=== PATIENT | male | born 1970 | race Caucasian/White ===

== ENCOUNTER 2024-11-10 13:11 | Outpatient (AMB) | payer BC, SELFPAY ==
--- NOTE | 2024-11-10 13:20 | MHC.OFFVIS ---
Vital Signs 11/10/24 13:22 Height 5 ft 8 in Weight 332 lb 14.368 oz BMI 50.6 BP 130/74 Blood Pressure Location Lt brachial Position Sitting Pulse 97 Pulse Source Pulse Oximeter Pulse Oximetry (%) 96 Oxygen Delivery Method Room Air Intake Visit Reasons: Obstructive sleep apnea Intake Note: pt is here for a new patient for CARMEN, has [employer] for DME. He states he has never seen a MD for his CARMEN since starting cpap Allergies No Known Allergies Allergy (Verified 11/10/24 14:10) Medication List - Last Reconciled 11/10/24 by Nicole Fermin MD ergocalciferol (vitamin D2) 1,250 mcg PO QWEEK glipizide ER mg PO metformin ER 1,000 mg PO BID multivitamin (Daily Multi-Vitamin tablet) 1 tab PO DAILY omega 4-eem-ery-fish oil 60-90-500 mg (Fish Oil) 1 cap PO DAILY rosuvastatin 40 mg PO DAILY semaglutide (Rybelsus) 7 mg PO DAILY venlafaxine ER 150 mg PO DAILY Do you need a note to return to daycare/school/sports/work: No HPI HPI Obstructive sleep apnea: Details: THIS GENTLEMAN IS 54 YEARS OLD, WITH LONGSTANDING HISTORY OF MORBID OBESITY, DIAGNOSED TO HAVE OBSTRUCTIVE SLEEP APNEA BACK IN 2018, GIVES HISTORY OF USING CPAP VERY REGULARLY, BUYING SUPPLIES ONLINE, BUT HAS NOT SEEN ANY PHYSICIAN FOR MANAGEMENT OF HIS SLEEP APNEA. 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 SLEEPS AFTER HIS WORK , SHIFT ENDING ABOUT 04:00, HE DOES USE THE CPAP WHENEVER HE GETS CHANCE TO SLEEP, WITH AN AVERAGE USAGE OF 6 TO 6-1/2 HOURS DAILY. 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 HE HAS BEEN ABLE TO GET THE LICENSE RENEWED BECAUSE HE HAS BEEN PRESENTING HIS COMPLIANCE TO BE GOOD. HE TOLD ME THAT HE GETS THE COMPLIANCE DOWNLOADED ON PRINTED BY [employer], WHENEVER HE NEEDS. 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 SOMETIMES IT BECOMES STRESSFUL. ALSO BECAUSE OF HIS WORKING AT NIGHT HIS HOURS OF SLEEP ARE SOMEWHAT ERRATIC. LATELY IN SPITE OF USING THE CPAP MORE THAN 6 HOURS PER DAY., HE EXPERIENCES SOME SLEEPINESS DURING THE DAYTIME WHEN HE IS NOT WORKING ACTIVELY, HE HAS SUFFERED FROM SOME DEPRESSION, HAS BEEN TREATED WITH VARIOUS MEDICATIONS, CURRENTLY HE IS ON EFFEXOR 150 MG DAILY . ONE OF THE SIDE EFFECTS OF THIS AGENT IS SLEEPINESS. HE IS BEING FOLLOWED BY HIS PRIMARY CARE PHYSICIAN AND HAS HAD LAP TESTS, WHICH ARE OKAY HE TELLS ME THAT HE IS BEING TREATED FOR DIABETES MELLITUS CURRENTLY ON METFORMIN, GLIPIZIDE ER AND SEMAGLUTIDE 7 MG P.O. DAILY. HE TELLS ME THAT HIS HB1C HAS BEEN OKAY. HE HAS JOINED EXERCISE PROGRAM AND LATELY HAS LOST ABOUT 20 LB OF WEIGHT. [facility] Medical History (Updated 11/10/24 @ 15:24 by Nicole Fermin MD) Depressive disorder Morbid obesity CARMEN on CPAP Social History (Updated 11/10/24 @ 13:29 by QUYNH Baldwin) Patient Tobacco Use Status: Former Tobacco user Review of Systems Const All systems reviewed & are unremarkable except as noted in HPI and below Eyes Reports no additional complaints ENT Reports no additional complaints Card Denies chest pain, Denies irregular heart rhythm and Denies leg edema Resp Reports no additional complaints GI Reports no additional complaints Reports no additional complaints Musc Reports no additional complaints Skin/Breast Reports other (HE DOES HAVE A CLUSTER OF PUSTULAR LESIONS ON MEDIAL ASPECT OF RIGHT THIGH ) Neuro Reports no additional complaints Psych Reports no additional complaints Endo Reports no additional complaints Aller/Immun Reports no additional complaints Physical Exam Vital Signs: Last Vital Signs Pulse 97 11/10/24 13:22 BP 130/74 11/10/24 13:22 Pulse Ox 96 11/10/24 13:22 Oxygen Delivery Method Room Air 11/10/24 13:22 BMI result Body Mass Index 50.6 Const Other: GROSSLY OBESE General: comfortable, no acute distress, alert and awake Orientation/consciousness: patient oriented x3 HEENT Head: Yes normal to inspection General nose exam: No nasal polyps present and No nasal discharge present Face and sinus: Yes sinuses nontender Mouth: oropharynx abnormals (NARROW AND CROWDED OROPHARYNX, MALLAMPATI CLASS 4) Throat: Yes posterior oropharynx normal Eyes General: appearance normal, both eyes and all related structures Neck Neck: Yes normal visual inspection, Yes no lymphadenopathy, Yes trachea midline, Yes no JVD and Yes other (NECK CIRCUMFERENCE 19 IN) Thyroid: Thyroid normal Chest Chest palpation & inspection: normal inspection of the chest, normal palpation of entire chest wall and no tenderness Resp Other: PERCUSSION NOTE IS NOT PERCEPTIBLE BECAUSE OF THICK CHEST WALL BREATH SOUNDS ARE SLIGHTLY DISTANT OVER THE BASILAR AREAS. NO ADVENTITIOUS SOUNDS HEARD . Cardio Palpation: normal PMI Rate: regular rate Rhythm: regular rhythm Heart sounds: no gallops and no murmurs GI Palpation (GI): Soft to palpation, nontender, No hepatosplenomegaly present, no masses and Other GI palpation findings present (ABDOMEN IS OBESE AND PROTUBERANT) Auscultation: normal bowel sounds Back/Spine/Pelvis Thoracic/Lumbar Spine: thoracic and lumbar spine normal to inspection Skin General skin exam: no rashes or lesions noted Nails: other (CLUSTER OF PAPULAR LESIONS, RIGHT THIGH ON THE MEDIAL SIDE) Neuro General: patient oriented x3 and no focal motor deficits Cranial nerves: Yes CN's II-XII intact bilaterally Extrem General: Yes normal to inspection, Yes no clubbing, cyanosis or edema and Yes no calf tenderness Psych Appearance: grossly normal and well kempt Speech and movement: Normal speech and movement present Results Reviewed Results Reviewed: COMPLIANCE REPORT FROM 10/11/2024 TO 11/09/2024 IS REVIEWED. HIS USAGE IS 100% [place] [place] DAYS AVERAGE USAGE PER DAY 6 HOURS 45 MINUTES. PRESSURE SETTING MINIMUM 12 CM MAXIMUM 20 CM WITH EPR OF 3. PRESSURE USED MOSTLY 12-13 CM. NO SIGNIFICANT AIR LEAK NOTED. RESIDUAL AHI ONLY 0.7 Assessment & Plan Assessment & Plan (1) CARMEN on CPAP: Comment: THIS GENTLEMAN IS CONFIRMED CASE OF OBSTRUCTIVE SLEEP APNEA PER SLEEP STUDY IN 2018. HE HAD LAB BASED POLYSOMNOGRAM STUDY, AND RECOMMENDATION WAS TO START HIM ON CPAP. AFTER HE GOT THE CPAP. HE HAS BEEN MANAGING HIMSELF, AND GETTING THE SUPPLIES MOSTLY ONLINE. PER HISTORY AND ALSO EVIDENCED BY HIS COMPLIANCE REPORT, HE IS VERY COMPLIANT AND BENEFITING FROM THE USE OF CPAP. CURRENTLY HAVING PROBLEM WITH THE MASK THAT HE IS USING. IT IS A NASAL MASK, IT IS IRRITATING THE BRIDGE OF HIS NOSE. HE LIKES TO GET A MORE COMFORTABLE MASK AND MAY BE FULLFACE. Code(s): G47.33 - Obstructive sleep apnea (adult) (pediatric) Category: Medical Plan: HIS DME SUPPLIER IS [employer]. WE ARE SENDING A NOTE TO [facility], AND INSTRUCTING THE PATIENT TO SET UP AN APPOINTMENT FOR A MASK FITTING VISIT. HE IS ADVISED TO KEEP ON USING THE CPAP REGULARLY AT LEAST FOR 6 HOURS EVERY DAY OR DURING THE NIGHT. BECAUSE HE COMPLAINED OF RESIDUAL DAYTIME SLEEPINESS, I THINK IT IS DUE TO HIS ERRATIC HOURS OF WORK, AND OF. CPAP USAGE HE SHOULD BE FOLLOWED UP REGULARLY FOR MANAGEMENT OF HIS SLEEP APNEA AND USE OF CPAP. WE MADE APPOINTMENT FOR HIM TO COME BACK IN ABOUT 4 MONTHS, HOWEVER HE MAY CONTINUE TO MANAGE HIS SLEEP APNEA BY HIMSELF. (2) Morbid obesity: Comment: THIS GENTLEMAN REMAINS MORBIDLY OBESE. CURRENT BMI 50.6. HE IS WATCHING HIS DIET HIMSELF AND TRIES TO DO EXERCISE OFF AND ON. Code(s): E66.01 - Morbid (severe) obesity due to excess calories Category: Medical Plan: STRESSED THAT HE NEEDS TO DO PHYSICAL EXERCISE ON A REGULAR BASIS. HE SHOULD SEE A DIETITIAN AND TRY TO MANAGE HIS DIET. (3) Depressive disorder: Comment: COMPLAINS OF GENERALIZED DEPRESSION. THIS MAY BE DUE TO HIS ONGOING MORBID OBESITY AND SLEEP APNEA. OR MAY BE SITUATIONAL HIS ELDERLY MOTHER LIVES WITH HIM AND HE HAS TO TAKE CARE OF. Code(s): F32.A - Depression, unspecified Category: Medical Plan: ADVISE THAT HE SHOULD CONTINUE TO WORK WITH HIS PRIMARY CARE PHYSICIAN . HE MAY NEED ADJUSTMENT IN HIS MEDS . HE MAY NEED REFERRAL FOR MENTAL HEALTH COUNSELING. Plan THIS GENTLEMAN TOLD ME THAT HE HAS BEEN OUT OF WORK FOR A FEW DAYS AND FOR HIM TO GO BACK TO WORK HE NEEDS A NOTE FROM . A PHYSICIAN I SEE HIM FAIRLY WELL UNSTABLE I GAVE HIM A WRITTEN NOTE THAT HE CAN RETURN TO HIS WORK AT THE POST OFFICE OF 11/13/2024 Coding Level of Care Code New Pt Level 3 (55581) Diagnoses CARMEN on CPAP G47.33 Morbid obesity E66.01 Depressive disorder F32.A
[2024-11-10 13:22] VITALS: BP 130/74; PULSE 97; O2SAT 96; BMI 50.6
--- OUTSIDE RECORDS SUMMARY | 2024-11-10 14:16 | XMS_ITS | Clinical Summary ---
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 on direct ? and retroflexion views. Procedure Code(s): ? --- Professional --- ? 18496, Colonoscopy, flexible; with removal of ? tumor(s), polyp(s), or other lesion(s) by snare ? technique Diagnosis Code(s): ? --- Professional --- ? Z12.11, Encounter for screening for malignant neoplasm ? of colon ? K64.9, Unspecified hemorrhoids ? D12.2, Benign neoplasm of ascending colon CPT copyright 2020 [employer]. All rights reserved. The codes documented in this report are preliminary and upon chemical operations specialist review may be revised to meet current compliance requirements. ASHA Aranda DO 06/08/2024 2:56:04 PM This report has been signed electronically.Asha Aranda DO Number of Addenda: 0 Note Initiated On: 06/08/2024 1:07 PM Scope Withdrawal Time: 0 hours 9 minutes 11 seconds Scope In: 2:42:09 PM Scope Out: 2:54:59 PM ? Endoscopy Department at [facility] - [address] [place] [address], ? [place] [address] Procedure Note Asha Aranda DO - 06/08/2024 [facility] GI Patient Name: Bladimir Harrington Procedure Date: 06/08/2024 1:07 PM Date of : 1970 Age: 54 Gender: Male Note Status: Finalized Attending MD: Asha Aranda DO, [id number] Procedure Date No Time: 06/08/2024 Procedure: Colonoscopy Indications: Screening for colorectal malignant neoplasm Providers: Asha Aranda DO Referring MD: Stan Culp MD Medicines: Monitored Anesthesia Care Complications: No immediate complications. Estimated blood loss: Minimal. Estimated Blood Loss: Estimated blood loss was minimal. Procedure: Pre-Anesthesia Assessment: - - Prior to the procedure, a History and Physicalwas performed, and patient medications and allergieswere reviewed. The patient is competent. The risks and benefits of the procedure and the sedation optionsand risks were discussed with the patient. Allquestions were answered and informed consent was obtained. Patient identification and proposed procedure were verified by the physician, the nurse, the anesthesiologist, the caretaker grounds and thetechnician in the pre-procedure area in the endoscopy suite. Mental Status Examination: alert and oriented.Airway Examination: normal oropharyngeal airway and neck mobility. Respiratory Examination: clear to auscultation. CV Examination: normal. Prophylactic Antibiotics: The patient does not requireprophylactic antibiotics. Prior Anticoagulants: The patient has taken no anticoagulant or antiplatelet agents. ASA Grade Assessment: II - A patient with severesystemic disease. After reviewing the risks and benefits,the patient was deemed in satisfactory condition to undergo the procedure. The anesthesia plan was touse monitored anesthesia care (MAC). Immediately priorto administration of medications, the patient was re-assessed for adequacy to receive sedatives. The heart rate, respiratory rate, oxygen saturations, blood pressure, adequacy of pulmonary ventilation,and response to care were monitored throughout the procedure. The physical status of the patient was re-assessed after the procedure. After I obtained informed consent, the scope was passed under direct vision. Throughout theprocedure, the patient's blood pressure, pulse, and oxygen saturations were monitored continuously. The Colonoscope was introduced through the anus and advanced to the cecum, identified by appendiceal orifice and ileocecal valve. The colonoscopy was performed without difficulty. The patient tolerated the procedure well. The quality of the bowel preparation was good. Findings: Hemorrhoids were found on perianal exam. A 6 mm polyp was found in the ascending colon. The polyp was sessile. The polyp was removed with acold snare. Resection and retrieval were complete. Estimated blood loss was minimal. The exam was otherwise without abnormality ondirect and retroflexion views. Procedure Code(s): --- Professional --- 44815, Colonoscopy, flexible; with removal of tumor(s), polyp(s), or other lesion(s) by snare technique Diagnosis Code(s): --- Professional --- Z12.11, Encounter for screening for malignantneoplasm of colon K64.9, Unspecified hemorrhoids D12.2, Benign neoplasm of ascending colon CPT copyright 2020 [employer]. All rights reserved. The codes documented in this report are preliminary and upon chemical operations specialist reviewmay be revised to meet current compliance requirements. ASHA Aranda DO 06/08/2024 2:56:04 PM This report has been signed electronically.Asha Aranda DO Number of Addenda: 0 Note Initiated On: 06/08/2024 1:07 PM Scope Withdrawal Time: 0 hours 9 minutes 11 seconds Scope In: 2:42:09 PM Scope Out: 2:54:59 PM Endoscopy Department at [facility] - [address] [place] [id number] IMPRESSION: - Hemorrhoids found on perianal exam. - One 6 mm polyp in the ascending colon, removedwith a cold snare. Resected and retrieved. - The examination was otherwise normal on directand retroflexion views. Recommendation: - - Discharge patient to home. - High fiber diet. - Continue present medications. - Await pathology results. - Repeat colonoscopy for surveillance based on pathology results. Asha Aranda DO GI~PROCEDURE ORDERABLES Final Re sult * (ABNORMAL) Lipid panel with reflex to direct LDL (05/23/2024 3:03 PM EST) Cholesterol 200 0 - 200 mg/dL LAB CHEMISTRY METHOD 05/23/2024 6:45 PM [facility] Triglycerides 284(H) 0 - 150 mg/dL LAB CHEMISTRY METHOD 05/23/2024 6:45 PM EST [facility] HDL 40 >=40 mg/dL LAB CHEMISTRY METHOD 05/23/2024 6:45 PM [facility] LDL Calculated 103(H) 0 - 100 mg/dL LAB CHEMISTRY METHOD 05/23/2024 6:45 PM [facility] VLDL Cholesterol Manoj 56.8 mg/dL LAB CHEMISTRY METHOD 05/23/2024 6:45 PM EST [facility] Non HDL Chol. (LDL+VLDL) 160(H) <145 mg/dL LAB CHEMISTRY METHOD 05/23/2024 6:45 PM EST [facility] Chol/HDL Ratio 5.0(H) 0.0 - 4.4 LAB CHEMISTRY METHOD 05/23/2024 6:45 PM EST [facility] Blood Venous blood specimen / Unknown Venipuncture / Unknown 05/23/2024 3:03 PM EST 05/23/2024 3:03 PM EST Stan Culp MD LAB BLOOD ORDERABLES Desirae l Result [facility] [address] [place] [address], * Hepatitis C Screening (02/03/2023) Hepatitis C Screening Abstracted Historical Provider HEALTH MAINTENANCE Final Result from Last 3 Months or Most Recently Relevant to Health Maintenance Insurance [facility] Care Teams Roller Bearing Inspector Relationship Specialty Start Date End Date Stan Culp MD [address] [place] [id number] PCP - General Internal Medicine 09/10/16
--- OUTSIDE RECORDS SUMMARY | 2024-11-10 14:16 | XMS_ITS | Encounter Summary ---
[facility] Organization [facility] Address [address] [place] [address] Care Team Providers Care Aircraft Structure Mechanic Name Role Phone Stan Culp MD Primary Care Provider [phone] Reason for Visit * Reason Onset Date Comments lamont 11/09/2024 Encounter Details Date Type Department Care Team (Late st Contact Info) Description 11/09/2024 Telephone Endocrinology - [address] [address] Arlette De La Cruz PA [address] [place] [address] lamont Social History Tobacco Use Types Packs/Day Years [...] on file Sexual Orientation Not on file documented as of this encounter Progress Notes * YADIRA Hudson - 11/10/2024 10:42 AM EDT Lamont will decrease appetite, but it still reported that he eats balanced meals. He should not be skipping meals. If his appetite has decreased so severe that he is not eating at all then we need to discontinue medication * Tuyet Schafer - 11/09/2024 1:11 PM EDT Patient wants to know if its ok to use the mounjaro if he already has no desire to eat. Please advise at [phone] documented in this encounter Plan of Treatment Upcoming Encounters Date Type Department Care Team (Late st Contact Info) Description 01/26/2025 7:30 AM EDT Office Visit Endocrinology - [address] [address] Arlette De La Cruz PA [address] [place] [address] 02/06/2025 9:45 AM EDT Office Visit Internal Medicine - [facility] [address] [place] [address] Stan Culp MD [address] [place] [address] documented as of this encounter Visit Diagnoses Not on filedocumented in this encounter Care Teams Aircraft Structure Mechanic Relationship Specialty Start Date End Date Stan Culp MD [address] [place] [address] PCP - General Internal Medicine 09/10/16 documented as of this encounter
--- OUTSIDE RECORDS SUMMARY | 2024-11-10 14:16 | XMS_ITS | Encounter Summary ---
Author Organization [facility] Address [address] [place] [address] Care Team Providers Care Electromyographic Technician Name Role Phone Stan Culp MD Primary Care Provider [phone] Reason for Visit * Reason Onset Date Comments prior auth 10/28/2024 Encounter Details Date Type Department Care Team (Late st Contact Info) Description 10/28/2024 Telephone Endocr[address] [address] Arlette De La Cruz PA [address] [place] [address] prior auth Social History Tobacco Use Types Packs/Day Years [...] as of this encounter Progress Notes * Gely Geronimo - 10/28/2024 12:48 PM EDT Prior Authorization for Medication-do not complete and send this encounter unless you have the fax from the pharmacy. Is this a Cover My Meds request: Yes -- Ball Code [id number] Name of Medication MOUNJARO Dose of Medication 5MG/0.5 ML AUTO INJECTORS How does patient take this med? Inject 0.5 mL (5 mg total) under the skin every 7 (seven) days., Starting Luisa 10/27/2024, Normal What Pharmacy did the fax come from: [address] [address] Pharmacy fax #: [phone] Help desk phone: [phone] documented in this encounter Plan of Treatment Upcoming Encounters Date Type Department Care Team (Late st Contact Info) Description 01/26/2025 7:30 AM EDT Office Visit Endocrinology - [address] [address] Arlette De La Cruz PA [address] [place] [address] 02/06/2025 9:45 AM EDT Office Visit Internal Medicine - [address] [phone] Stan Culp MD [address] [place] [address] documented as of this encounter Visit Diagnoses Not on filedocumented in this encounter Care Teams Electromyographic Technician Relationship Specialty Start Date End Date Stan Culp MD [address] [place] [id number] PCP - General Internal Medicine 09/10/16 documented as of this encounter
--- OUTSIDE RECORDS SUMMARY | 2024-11-10 14:16 | XMS_ITS | Encounter Summary ---
Author Organization [facility] Address [address] [place] [address] Care Team Providers Care Seals Engraver Name Role Phone Stan Culp MD Primary Care Provider [phone] Reason for Visit * Reason Onset Date Comments Medication Problem 10/28/2024 Encounter Details Date Type Department Care Team ([facility] st Contact Info) Description 10/28/2024 Telephone [facility] - [address] [address] Arlette De La Cruz PA [address] [place] [address] Medication Problem Social History Tobacco Use Types Packs/Day Years [...] encounter Progress Notes * YADIRA Hudson - 11/01/2024 8:55 AM EDT I told this to the patient during her visit. Take 2.5 once a week for the first month, after the first month go up to 5 mg * Reina Araiza - 10/28/2024 10:35 AM EDT Medication Problem: What is the name of the medication patient is having a problem with?: Mounjaro What is the problem?: patient is calling with some questions about Mounjaro. His pharmacy called him to reach out to us. He states there was an rx sent to pharmacy that was canceled for Mounjaro 5 MG, and on MyChart he can see an rx for Mounjaro 2.5 MG as well that says it was not sent to pharmacy?I asked patient if he knew what dose of Mounarjo he was taking or if this was a new medication and he was unsure. PCP had him taking Ozempic before but due to shortages switched to Rybelsus. Rybelsuswas discontinued yesterday to be replaced with Mounjaro? He just wants to make sure he gets the correct dose from pharmacy. Pharmacy [facility]. Who is calling about the problem? : The patient Who prescribed this medication for the patient? Arlette De La Cruz Who is patients PCP?: Stan Culp MD Payor: [facility] / Plan: [facility] / Product Type: *No Product type* / documented in this encounter Plan of Treatment Upcoming Encounters Date Type Department Care Team (Late st Contact Info) Description 01/26/2025 7:30 AM EDT Office Visit Endocrinology - [address] [address] Arlette De La Cruz PA [address] [place] [address] 02/06/2025 9:45 AM EDT Office Visit Internal Medicine - [address] [address] Stan Culp MD [address] [place] [address] documented as of this encounter Visit Diagnoses Not on filedocumented in this encounter Care Teams Seals Engraver Relationship Specialty Start Date End Date Stan Culp MD [address] [place] [address] PCP - General Internal Medicine 09/10/16 documented as of this encounter
--- OUTSIDE RECORDS SUMMARY | 2024-11-10 14:16 | XMS_ITS | Clinical Summary ---
Author Organization [facility] Address [address] [place] [address] Care Team Providers Care Study Abroad Advisor Name Role Phone Unavailable Primary Care Provider Unavailabl e Allergies No known active allergies Medications * This document contains information received from the source organization and may not represent a complete record from that organization. No known medications Social History Tobacco Use Types Packs/Day Years Used Date Smoking Tobacco: Every Day Cigarettes Alcohol Use Standard Drinks/Week Comments Not Asked 0 (1 standard drink = 0.6 oz pur e alcohol) Sex and Gender Information Value Date Recorded Sex Assigned at Not on file Legal Sex Male 1:47 AM EDT Gender Identity Not on file Sexual Orientation Not on file Last Filed Vital Signs Vital Sign Reading Time Taken Comments Blood Pressure 134/94 05/01/2011 12:54 PM EDT Pulse 100 05/01/2011 12:54 PM EDT Temperature - - Respiratory Rate - - Oxygen Saturation - - Inhaled Oxygen Concentration - - Weight 133 kg (293 lb) 05/01/2011 12:54 PM EDT Height 170.2 cm (5' 7 ) 05/01/2011 12:54 PM EDT Body Mass Index 45.89 05/01/2011 12:54 PM EDT Plan of Treatment Health Maintenance Due Date Last Done Comments Hepatitis C Screening 1970 DTaP/Tdap/Td (1 - Tdap) 1990 Hep B (1 of 3 - 19+ 3-dose series) 1991 Pneumococcal 50+ years (1 of 1 - PCV) 2022 Zoster (Shingrix) (1 of 2) 2022 COVID-19 Vaccine ( - 2023-2 5 season) 2024 Influenza (#1) 2024 HPV Vaccine Aged Out No longer eligi ble based on patient's age to complete this topic Hep A Aged Out No longer eligi ble based on patient's age to complete this topic Hib Aged Out No longer eligi ble based on patient's age to complete this topic Meningococcal ACWY Aged Out No longer eligible based on patient's age to complete this topic
--- OUTSIDE RECORDS SUMMARY | 2024-11-10 14:16 | XMS_ITS | Clinical Summary ---
Author Organization [facility] Address [address] [place] [address] Care Team Providers Care Web Database Developer Name Role Phone Stan Culp MD Primary Care Provider [phone] Allergies Active Allergy Reactions Criticality Noted Date Comments Seasonal 08/20/2023 Medications Medication Sig Dispensed Refills Start Date End Date Status Semaglutide 7 MG TABS Take 1 tablet by mouth daily. 0 Active Cholecalciferol 1.25 MG (20406 UT) capsule Take 50,000 Units by mouth daily. 0 Active naproxen (NAPROSYN) 500 MG tablet Take 1 tablet (500 mg total) by mouth 2 (two) times a day with meals. 0 Active metFORMIN (GLUCOPHAGE-XR) ER 24 hr tablet 500 mg Take 1 tablet (500 mg total) by mouth 2 (two) times a day with meals. 0 Active Empagliflozin 25 MG TABS Take 1 tablet by mouth daily. 0 Active venlafaxine (EFFEXOR-XR) 75 MG 24 hr capsule Take 1 capsule (75 mg total) by mouth daily. 0 Active glipiZIDE (GLUCOTROL XL) ER 24 hr tablet 5 mg Take 1 tablet (5 mg total) by mouth 2 (two) times a day. 0 Active atorvastatin (LIPITOR) tablet 80 mg Take 1 tablet (80 mg total) by mouth daily. 0 Active CETIRIZINE HCL PO Take 1 tablet by mouth daily. 0 Active Active Problems No known active problems Social History Tobacco Use Types Packs/Day Years Used Date Smoking Tobacco: Former Cigarettes Smokeless Tobacco: Never Tobacco Cessation:Counseling Given: Not Answered Alcohol Use Standard Drinks/Week Comments Yes 0 (1 standard drink = 0.6 oz pur e alcohol) social Sex and Gender Information Value Date Recorded Sex Assigned at Not on file Gender Identity Not on file Sexual Orientation Not on file Job Start Date Occupation Industry Not on file Not on file Not on file Last Filed Vital Signs Vital Sign Reading Time Taken Comments Blood Pressure 125/78 11/12/2023 1:02 PM EDT Pulse 100 11/12/2023 1:02 PM EDT Temperature 36 ??C (96.8 ??F) 11/12/2023 1:02 PM EDT Respiratory Rate - - Oxygen Saturation 97% 11/12/2023 1:02 PM EDT Inhaled Oxygen Concentration - - Weight 159.2 kg (351 lb) 11/12/2023 1:02 PM EDT Height - - Body Mass Index - - Plan of Treatment Health Maintenance Due Date Last Done Comments Hepatitis B Vaccines (1 of 3 - 3-dose series) 1970 Hepatitis C Screening 1970 COVID-19 Vaccine (#1) 1970 Depression Screening 1984 Preventative Health Evaluation 1990 Colon Cancer Screening (Colonoscopy) 2017 Shingrix-Zoster Vaccine (1 of 2) 2022 Influenza Vaccine (#1) 2024 DTap / Tdap / Td (2 - Td or Tdap) 09/10/2026 017 Pneumococcal Vaccine Aged Out No long er eligible based on patient's age to complete this topic RSV Ped < 20 months Aged Out No longe r eligible based on patient's age to complete this topic Care Teams Web Database Developer Relationship Specialty Start Date End Date Stan Culp MD [address] [place] [address] PCP - General Internal Medicine 07/27/23
== END 2024-11-10 14:08 | disposition home or self-care (01) ==
LOC: HO.HPS 13:11
PROVIDERS: PCP Internal Medicine; Referring Provider Internal Medicine; Visit Provider Internal Medicine
DX: G47.33 Obstructive sleep apnea (adult) (pediatric) (principal); E66.01 Morbid (severe) obesity due to excess calories; F32.A Depression, unspecified
CPT/HCPCS: 99203

== ENCOUNTER 2025-03-15 10:37 | Outpatient (AMB) | payer BC, SELFPAY ==
[2025-03-15 10:39] VITALS: BP 111/60; PULSE 91; O2SAT 96; BMI 51.1
--- NOTE | 2025-03-15 10:39 | A.OFFVIS_ITS ---
Vital Signs 03/15/25 10:39 Height 5 ft 8 in Weight 336 lb BMI 51.1 BP 111/60 Blood Pressure Location Lt brachial Position Sitting Pulse 91 Pulse Source Pulse Oximeter Pulse Oximetry (%) 96 Oxygen Delivery Method Room Air Intake Visit Reasons: Obstructive sleep apnea Intake Note: Patient is here for a follow up on Sleep Apnea, patient stated he does not feel improvement with CPAP machine. Allergies No Known Allergies Allergy (Verified 03/15/25 12:12) Medication List - Last Reconciled 03/15/25 by Nicole Fermin MD ergocalciferol (vitamin D2) 1,250 mcg PO QWEEK gabapentin 100 mg PO TID glipizide ER mg PO metformin ER 1,000 mg PO BID rosuvastatin 40 mg PO DAILY semaglutide (Rybelsus) 7 mg PO DAILY HPI HPI Obstructive sleep apnea: Details: THIS 54 YEARS OLD GENTLEMAN, WITH MORBID OBESITY, WORKS FOR THE [employer]. 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 HE TRIES TO SLEEP DURING THE DAYTIME, GETS ABOUT 5 HOURS OF SLEEP. CLAIMS THAT HIS SLEEP IS THE SAME WHETHER HE USES CPAP OR NOT. LATELY HAS NOT BEEN ABLE TO USE THE CPAP BECAUSE OF IRRITATION OF THE NASAL BRIDGE. HE WONDERS IF HE REALLY DOES HAVE SLEEP APNEA NOT. [facility] Medical History Depressive disorder Morbid obesity CARMEN on CPAP Social History Patient Tobacco Use Status: Former Tobacco user Review of Systems Const All systems reviewed & are unremarkable except as noted in HPI and below Eyes Reports no additional complaints ENT Reports no additional complaints Card Denies chest pain, Denies irregular heart rhythm and Denies leg edema Resp Reports no additional complaints GI Reports no additional complaints Reports no additional complaints Musc Reports no additional complaints Skin/Breast Reports other (HE DOES HAVE A CLUSTER OF PUSTULAR LESIONS ON MEDIAL ASPECT OF RIGHT THIGH ) Neuro Reports no additional complaints Psych Reports no additional complaints Endo Reports no additional complaints Aller/Immun Reports no additional complaints Physical Exam Vital Signs: Last Vital Signs Pulse 91 03/15/25 10:39 BP 111/60 03/15/25 10:39 Pulse Ox 96 03/15/25 10:39 Oxygen Delivery Method Room Air 09/10/25 10:39 BMI result Body Mass Index 51.1 Const Other: GROSSLY OBESE General: comfortable, no acute distress, alert and awake Orientation/consciousness: patient oriented x3 HEENT Head: Yes normal to inspection General nose exam: No nasal polyps present and No nasal discharge present Face and sinus: Yes sinuses nontender Mouth: oropharynx abnormals (NARROW AND CROWDED OROPHARYNX, MALLAMPATI CLASS 4) Throat: Yes posterior oropharynx normal Eyes General: appearance normal, both eyes and all related structures Neck Neck: Yes normal visual inspection, Yes no lymphadenopathy, Yes trachea midline, Yes no JVD and Yes other (NECK CIRCUMFERENCE 19 IN) Thyroid: Thyroid normal Chest Chest palpation & inspection: normal inspection of the chest, normal palpation of entire chest wall and no tenderness Resp Other: PERCUSSION NOTE IS NOT PERCEPTIBLE BECAUSE OF THICK CHEST WALL BREATH SOUNDS ARE SLIGHTLY DISTANT OVER THE BASILAR AREAS. NO ADVENTITIOUS SOUNDS HEARD . Cardio Palpation: normal PMI Rate: regular rate Rhythm: regular rhythm Heart sounds: no gallops and no murmurs GI Palpation (GI): Soft to palpation, nontender, No hepatosplenomegaly present, no masses and Other GI palpation findings present (ABDOMEN IS OBESE AND PRO TUBERANT) Auscultation: normal bowel sounds Back/Spine/Pelvis Thoracic/Lumbar Spine: thoracic and lumbar spine normal to inspection Skin General skin exam: no rashes or lesions noted Nails: other (CLUSTER OF PAPULAR LESIONS, RIGHT THIGH ON THE MEDIAL SIDE) Neuro General: patient oriented x3 and no focal motor deficits Cranial nerves: Yes CN's II-XII intact bilaterally Extrem General: Yes normal to inspection, Yes no clubbing, cyanosis or edema and Yes no calf tenderness Psych Appearance: grossly normal and well kempt Speech and movement: Normal speech and movement present Results Reviewed Results Reviewed: COMPLIANCE REPORT IS REVIEWED. HE HAS USED FOR ONLY 30 NIGHTS OUT OF THE WHOLE MONTH, NOTED ABOVE HE EXPLAINS THAT HE HAD A SUPERFICIAL BUT AT THE NASAL BRIDGE, AND COULD NOT USE THE FULLFACE MASK. NOW IT IS HEALED AND HE IS GOING TO TRY TO START USING THE MASK AGAIN. Assessment & Plan Assessment & Plan (1) Morbid obesity: Comment: THIS GENTLEMAN REMAINS MORBIDLY OBESE. CURRENT BMI 51.1 HE IS WATCHING HIS DIET HIMSELF AND TRIES TO DO EXERCISE OFF AND ON. DOES NOT WANT TO JOIN ANY WEIGHT MANAGEMENT PROGRAM Code(s): E66.01 - Morbid (severe) obesity due to excess calories Category: Medical Plan: DISCUSS WITH HIM ABOUT HIS WEIGHT HE CLAIMS THAT HE KNOWS IT AND HE IS TRYING HIS BEST TO WATCH HIS DIET . . CAN NOT DO MUCH EXERCISE CURRENTLY HE HAS BEEN STARTED ON MOUNJARO THERAPY AND HE IS HOPING TO LOSE WEIGHT. (2) CARMEN on CPAP: Comment: THIS GENTLEMAN IS CONFIRMED CASE OF OBSTRUCTIVE SLEEP APNEA PER SLEEP STUDY IN 2018. HE HAD LAB BASED POLYSOMNOGRAM STUDY, AND RECOMMENDATION WAS TO START HIM ON CPAP. AFTER HE GOT THE CPAP. HE HAS BEEN MANAGING HIMSELF, AND GETTING THE SUPPLIES MOSTLY ONLINE. PER HISTORY AND ALSO EVIDENCED BY HIS COMPLIANCE REPORT, HE IS VERY COMPLIANT AND BENEFITING FROM THE USE OF CPAP. AFTER HIS LAST VISIT WE HAVE HOOKED HIM WITH THE LOCAL DME SUPPLIER AND HE IS GETTING HIS SUPPLIES, HIS MASK HAS BEEN CHANGED TO FULLFACE MASK OF LARGE SIZE., HE SAID INITIALLY IT WAS MORE COMFORTABLE THAN BEFORE BUT NOW IT HAS CAUSED SOME IRRITATION ON THE NASAL BRIDGE. Code(s): G47.33 - Obstructive sleep apnea (adult) (pediatric) Category: Medical Plan: I ADVISED HIM TO START USING THE CPAP AGAIN REGULARLY. HE QUESTIONED , WHETHER HE REALLY DOES HAVE SLEEP APNEA ARE NOT, HE DOES NOT FIND ANY DIFFERENCE IN HIS SLEEP WHETHER HE USES THE CPAP OR DOES NOT. DISCUSSED ABOUT HAVING ANOTHER SLEEP STUDY IN THE SLEEP LAB. HE WANTS TO WAIT A FEW MORE MONTHS AND SEE IF HE CAN LOSE MORE. WEIGHT AND THEN HAVE THE STUDY Coding Level of Care Code Est Pt Level 3 (09702) Diagnoses Morbid obesity E66.01 CARMEN on CPAP G47.33
--- OUTSIDE RECORDS SUMMARY | 2025-03-15 13:11 | XMS_ITS | Encounter Summary ---
Author Organization [facility] Address [address] [place] [address] Care Team Providers Care Beading Sawyer Name Role Phone Stan Culp MD Primary Care Provider [phone] [phone] Encounter Details Date Type Department Care Team Description 06/05/2023 Telephone Adult Medicine [address] [id number] Stan Culp MD [address] [place] [address] Social History Tobacco Use Types Packs/Day Years Used Date Smoking Tobacco: Former Cigarettes 1 25 1 988 - 02/03/2013 Smokeless Tobacco: Never Alcohol Use Standard Drinks/Week Comments No 0 (1 standard drink = 0.6 oz pur e alcohol) Socially Sex Assigned at Date Recorded Male 11/05/2021 11:59 AM EDT Job Start Date Occupation Industry Not on file Not on file Not on file COVID-19 Exposure Response Date Recorded In the last 10 days, have yo u been in contact with someone who was confirmed or suspected to have Coronavirus/COVID-19? Unable to assess 05/14/2023 1:30 PM EST documented as of this encounter Miscellaneous Notes * Telephone Encounter - Roro Serra M.A. - 06/05/2023 10:36 AM EST Left vm put to b side * Telephone Encounter - Roro Serra M.A. - 06/05/2023 10:35 AM EST ----- Message from Stan Culp MD sent at 06/05/2023 6:27 AM EST ----- Please let the patient know that his ultrasound of the abdomen showeed Abnormal liver texture that can be seen in fatty liver. I had already referred him to gastroenterology given his elevated alkaline phosphatase and fatty liver. Please ask him if he has an appointment booked with GI. Also his spleen is enlarged. I have referred him to hematology for this. documented in this encounter Plan of Treatment Not on file documented as of this encounter Visit Diagnoses Not on filedocumented in this encounter Care Teams Beading Sawyer Relationship Specialty Start Date End Date Stan Culp MD [address] [place] [address] PCP - General Internal Medicine 09/10/16 documented as of this encounter
--- OUTSIDE RECORDS SUMMARY | 2025-03-15 13:11 | XMS_ITS | Encounter Summary ---
Author Organization [facility] Address [address] [place] [address] Care Team Providers Care Manager Government Name Role Phone Stan Culp MD Primary Care Provider [phone] Encounter Details Date Type Department Care Team Description 07/21/2023 SCAN [facility] [address] [facility] [address] [place] [phone] Salas Hartley MD 175 [facility] [address] [place] [address] Social History Tobacco Use Types Packs/Day Years Used Date Smoking Tobacco: Former Cigarettes 1 25 1 988 - 02/03/2013 Smokeless Tobacco: Never Alcohol Use Standard Drinks/Week Comments No 0 (1 standard drink = 0.6 oz pur e alcohol) Socially Sex Assigned at Date Recorded Male 11/05/2021 11:59 AM EDT Job Start Date Occupation Industry Not on file Not on file Not on file documented as of this encounter Plan of Treatment Not on file documented as of this encounter Visit Diagnoses Not on filedocumented in this encounter Care Teams Manager Government Relationship Specialty Start Date End Date Stan Culp MD [address] [place], [place] [phone] PCP - General Internal Medicine 09/10/16 documented as of this encounter
--- OUTSIDE RECORDS SUMMARY | 2025-03-15 13:11 | XMS_ITS | Encounter Summary ---
Author Organization [facility] Address [address] [place] [address] Care Team Providers Care Dinkey Mechanic Name Role Phone Stan Culp MD Primary Care Provider [phone] Reason for Visit * Reason Onset Date Comments Provider Call Back 12/15/2016 Encounter Details Date Type Department Care Team Description 12/15/2016 Telephone Adult Medicine [address] [address] Stan Culp MD [address] [place] [address] Provider Call Back Social History Tobacco Use Types Packs/Day Years Used Date Smoking Tobacco: Former Cigarettes 1 25 Q uit: 02/03/2013 Smokeless Tobacco: Never Alcohol Use Standard Drinks/Week Comments Yes 0 (1 standard drink = 0.6 oz pur e alcohol) Socially Sex Assigned at Date Recorded Male 11/05/2021 11:59 AM EDT Job Start Date Occupation Industry Not on file Not on file Not on file documented as of this encounter Miscellaneous Notes * Telephone Encounter - Janice Menendez M.A. - 12/16/2016 8:27 AM EDT Called the pt. Same recording comes on as 12/15/16. If pt calls back please confirm phone number andremessage. Unable to reach pt at number provided * Telephone Encounter - Janice Menendez M.A. - 12/15/2016 3:10 PM EDT Called number listed in the chart. Recording comes on stating that at the subscribers request this phone is not taking incoming calls * Telephone Encounter - Julissa Donis - 12/15/2016 2:22 PM EDT Caller requesting call back from provider: Is the caller the patient? YES Reason for call back: Patient called earlier about referral, he would like to speak to a nurse regarding alternatives. Caller offered to speak with the nurse for assistance: YES Response: Patient offered to speak with nurse for assistance and patient agreed. Message forwarded to nurse. documented in this encounter Plan of Treatment Not on file documented as of this encounter Visit Diagnoses Not on filedocumented in this encounter Care Teams Dinkey Mechanic Relationship Specialty Start Date End Date Stan Culp MD [address] [place] [address] PCP - General Internal Medicine 09/10/16 documented as of this encounter
--- OUTSIDE RECORDS SUMMARY | 2025-03-15 13:11 | XMS_ITS | Encounter Summary ---
Author Organization [facility] Address [address] [place] [address] Care Team Providers Care Podiatric Aide Name Role Phone Stan Culp MD Primary Care Provider [phone] Reason for Visit * Reason Onset Date Comments radiology 12/22/2016 [facility] Encounter Details Date Type Department Care Team Description 12/22/2016 Telephone Adult Medicine [facility] [address] [place] [address] [place], TOE TRIMMER [address] [place] [address] radiology ([facility]) Social History Tobacco Use Types Packs/Day Years [...] encounter Miscellaneous Notes * Telephone Encounter - Debo Cross - 12/22/2016 8:37 AM EDT Please upload to [facility] MRI for [facility]. Thank you, Debo Joinery Machinist Sent images to [facility] on 12/22/16 pm documented in this encounter Plan of Treatment Not on file documented as of this encounter Visit Diagnoses Not on filedocumented in this encounter Care Teams Podiatric Aide Relationship Specialty Start Date End Date Stan Culp MD [address] [place] [address] PCP - General Internal Medicine 09/10/16 documented as of this encounter
--- OUTSIDE RECORDS SUMMARY | 2025-03-15 13:11 | XMS_ITS | Encounter Summary ---
Author Organization [facility] Address [address] [place] [address] Care Team Providers Care Ross Furnace Operator Name Role Phone Stan Culp MD Primary Care Provider [phone] [phone] Encounter Details Date Type Department Care Team Description 08/19/2021 Telephone [facility] [address] [phone] Lg Whalen DPM [address] [address] Social History Tobacco Use Types Packs/Day Years [...] Exposure Response Date Recorded In the last month, have you been in contact with someone who was confirmed or suspected to have Coronavirus / COVID-19? No / Unsure 07/29/2021 2:56 PM EST documented as of this encounter Miscellaneous Notes * Telephone Encounter - Lg Whalen DPM - 09/03/2021 8:04 AM EST Unfortunately his medical conditions specifically diabeties are so poorly controlled it is unlikelythat we will be able to do any elective surgery on him for the next 3 but realistically 6 months orlonger. He requires an A1C below 7.4 which takes many months to work on as he is currently above 9.We will wait to fill out any FMLA paperwork or scripts until he sees me again in 3-6 months with the hopes that he has better controll of his medical conditions. * Telephone Encounter - Adamaris Dobson - 08/29/2021 4:00 PM EST Spoke with Bladimir, just to touch base on the scooter and FMLA paperwork. Aware he will have to wait for the surgery anyways at this time, once the time comes we will go ahead and send out an RX for the scooter and also let him know that it may not be covered under his insurance but we will send thatout and review all the FMLA paperwork that he may have to get again for us to update the information. * Telephone Encounter - Lg Whalen DPM - 08/29/2021 7:59 AM EST I believe were all set on this FMLA paperwork. As far as the scooter goes. Happy to fax a script out to him of have him pick it up. Most insurances do not cover the scooter however. * Telephone Encounter - Akila Pederson - 08/19/2021 9:40 AM EST Bladimir is calling today inquiring about a script for a scooter for after surgery and also has a few questions on the process for FMLA paperwork documented in this encounter Plan of Treatment Not on file documented as of this encounter Visit Diagnoses Not on filedocumented in this encounter Care Teams Ross Furnace Operator Relationship Specialty Start Date End Date Stan Culp MD [address] [place] [address] PCP - General Internal Medicine 09/10/16 documented as of this encounter
--- OUTSIDE RECORDS SUMMARY | 2025-03-15 13:11 | XMS_ITS | Encounter Summary ---
Author Organization [facility] Address [address] [place] [address] Care Team Providers Care Shredder Picker Name Role Phone Stan Culp MD Primary Care Provider [phone] Reason for Visit * Reason Onset Date Comments Letter 09/16/2022 Encounter Details Date Type Department Care Team Description 09/16/2022 Telephone Adult Medicine [address] [phone] Stan Culp MD [address] [place] [address] Letter Social History Tobacco Use Types Packs/Day Years [...] was confirmed or suspected to have Coronavirus/COVID-19? No / Unsure 08/22/2022 3:01 PM EST documented as of this encounter Miscellaneous Notes * Telephone Encounter - Anderson Owusu - 09/16/2022 12:10 PM EDT Letter requested for: Exemption for work Reason for letter: Pt has a skin condition and the polyester pants aggrivate that condition. Specific notations needed in body of letter: That pt can't wear the polyester pants due to his skincondition as it will only aggrivate it. Date needed for completion: DEQUAN When completed: Will shredder picker-call when completed: Pt also has some specific information noted for PCP up front in mailbox. documented in this encounter Plan of Treatment Not on file documented as of this encounter Visit Diagnoses Not on filedocumented in this encounter Care Teams Shredder Picker Relationship Specialty Start Date End Date Stan Culp MD [address] [place] [address] PCP - General Internal Medicine 09/10/16 documented as of this encounter
--- OUTSIDE RECORDS SUMMARY | 2025-03-15 13:11 | XMS_ITS | Encounter Summary ---
Author Organization [facility] Address [address] [place] [address] Care Team Providers Care Early Childhood Lead Teacher Name Role Phone Stan Culp MD Primary Care Provider [phone] Encounter Details Date Type Department Care Team Description 09/21/[address] [facility] [address] [facility] [address] [place] [phone] Salas Hartley MD 175 [facility] [address] [place] [address] Social History Tobacco Use Types Packs/Day Years [...] on filedocumented in this encounter Care Teams Early Childhood Lead Teacher Relationship Specialty Start Date End Date Stan Culp MD [address] [place], [place] [phone] PCP - General Internal Medicine 09/10/16 documented as of this encounter
--- OUTSIDE RECORDS SUMMARY | 2025-03-15 13:11 | XMS_ITS | Encounter Summary ---
Author Organization [facility] Address [address] [place] [address] Care Team Providers Care Community Relations Police Lieutenant Name Role Phone Stan Culp MD Primary Care Provider [phone] Reason for Visit * Reason Onset Date Comments Prior Authorization 08/15/2022 Encounter Details Date Type Department Care Team Description 08/15/2022 Telephone Adult Medicine [address] [address] Stan Culp MD [address] [place] [address] Prior Authorization Social History Tobacco Use Types Packs/Day Years [...] encounter Miscellaneous Notes * Telephone Encounter - Avis Dickey M.A. - 08/19/2022 8:21 AM EST Prior authorization for the sunitha was approved Approved from 07/16/22 until 02/11/23 Approval faxed to [facility] at [phone] * Telephone Encounter - Avis Dickey M.A. - 08/15/2022 2:37 PM EST Cover my meds unable to find coverage for pt. Called pts pharmacy and they have the same insurance information that we have. Called [phone] Called and did the prior authorization over the phone with Navdeep Franklin E66.01 morbid obesity BMI 54.22 * Telephone Encounter - Ghada Conley - 08/15/2022 10:06 AM EST Prior Authorization for Medication-do not complete and send this encounter unless you have the fax from the pharmacy. Is this a Cover My Meds request: Yes -- Ball Code [id number] Name of Medication Semaglutide-Weight Management Solution Auto-injector Dose of Medication 1 MG/0.5ML What is the RX # from the faxed refill? NA How does patient take this med? Inject 1 mg into the skin once a week What Pharmacy did the fax come from: [facility] Pharmacy fax #: [phone] documented in this encounter Plan of Treatment Not on file documented as of this encounter Visit Diagnoses Not on filedocumented in this encounter Care Teams Community Relations Police Lieutenant Relationship Specialty Start Date End Date Stan Culp MD [address] [place] [address] PCP - General Internal Medicine 09/10/16 documented as of this encounter
--- OUTSIDE RECORDS SUMMARY | 2025-03-15 13:11 | XMS_ITS | Encounter Summary ---
Author Organization [facility] Address [address] [place] [address] Care Team Providers Care General Foreman Name Role Phone Stan Culp MD Primary Care Provider [phone] [phone] Reason for Visit * Reason Onset Date Comments TEST RESULTS 10/12/2023 Lmtcb on , ple ase transfer call to ext: [phone] thanks. DAMON BEAUCHAMP Encounter Details Date Type Department Care Team Description 10/12/2023 Telephone Adult Medicine [address] [address] Stan Culp MD [address] [place] [address] TEST RESULTS (Lmtcb on , please transfer call to ext: [phone] thanks. DAMON BEAUCHAMP) Social History Tobacco Use Types Packs/Day Years [...] encounter Miscellaneous Notes * Telephone Encounter - Ruth Lawler - 10/12/2023 11:07 AM EDT Pt called back, please call again. documented in this encounter Plan of Treatment Not on file documented as of this encounter Visit Diagnoses Not on filedocumented in this encounter Care Teams General Foreman Relationship Specialty Start Date End Date Stan Culp MD [address] [place] [address] PCP - General Internal Medicine 09/10/16 documented as of this encounter
--- OUTSIDE RECORDS SUMMARY | 2025-03-15 13:11 | XMS_ITS | Encounter Summary ---
Author Organization [facility] Address [address] [place] [address] Care Team Providers Care Senior Management Consultant Name Role Construction Sales RepresentativeFacundo Yarbrough MD Primary Care Provider Unavailab Stan Mcmillan MD Primary Care Provider [phone] Encounter Details Date Type Department Care Team Description 01/01/2016 Walk In Clinic Visit Medical Records [address] [place] [address] Social History Tobacco Use Types Packs/Day Years Used Date Smoking Tobacco: Former Cigarettes 1 25 Q uit: 02/03/2013 Alcohol Use Standard Drinks/Week Comments Yes 0 [...] on filedocumented in this encounter Care Teams Senior Management Consultant Relationship Specialty Start Date End Date Facundo Yarbrough MD PCP - General 11/05/10 09/09/16 Stan Culp MD [address] [place] [address] PCP - General Internal Medicine 09/10/16 documented as of this encounter
--- OUTSIDE RECORDS SUMMARY | 2025-03-15 13:11 | XMS_ITS | Encounter Summary ---
Author Organization [facility] Address [address] [place] [address] Care Team Providers Care Gi Physician Name Role Phone Stan Culp MD Primary Care Provider [phone] Encounter Details Date Type Department Care Team Description 09/17/2023 SCAN [facility] [address] [facility] [address] [place] [phone] Salas Hartley MD [address] [facility] [address] [place] [address] Social History Tobacco Use Types Packs/Day Years [...] on filedocumented in this encounter Care Teams Gi Physician Relationship Specialty Start Date End Date Stan Culp MD [address] [place], [place] [phone] PCP - General Internal Medicine 09/10/16 documented as of this encounter
--- OUTSIDE RECORDS SUMMARY | 2025-03-15 13:11 | XMS_ITS | Encounter Summary ---
Author Organization [facility] Address [address] [place] [address] Care Team Providers Care Hotel Staff Member Name Role Phone Stan Culp MD Primary Care Provider +1 -[phone] Reason for Visit * Reason Onset Date Comments medication problems 04/17/2023 Encounter Details Date Type Department Care Team Description 04/17/2023 Telephone Medicine/Pediatrics - [address] [address] Stan Culp MD [address] [place] [address] medication problems Social History Tobacco Use Types Packs/Day [...] encounter Miscellaneous Notes * Telephone Encounter - Tammy Doherty - 04/17/2023 2:38 PM EDT Pt advised to call other pharmacy to see if they have in stock. Pt will call back. Hannah BEAUCHAMP * Telephone Encounter - Ruth Lawler - 04/17/2023 2:30 PM EDT Pt returned call * Telephone Encounter - Tammy Doherty - 04/17/2023 2:13 PM EDT Left message for a call back, HANNAH BEAUCHAMP * Telephone Encounter - Stan Culp MD - 04/17/2023 1:44 PM EDT Can we send her to a different pharmacy. This medication is available in other pharmacies. * Telephone Encounter - Angely Stein - 04/17/2023 10:48 AM EDT Who is calling? [facility] Name of the medication Semaglutide, 1 MG/DOSE, 2 MG/1.5ML Solution Pen-injector What is the specific problem or interaction? Product backordered If the patient is having a problem with taking the med - how long has the problem been going on? N/A documented in this encounter Plan of Treatment Not on file documented as of this encounter Visit Diagnoses Not on filedocumented in this encounter Care Teams Hotel Staff Member Relationship Specialty Start Date End Date Stan Culp MD [address] [place] [address] PCP - General Internal Medicine 09/10/16 documented as of this encounter
--- OUTSIDE RECORDS SUMMARY | 2025-03-15 13:11 | XMS_ITS | Encounter Summary ---
Author Organization [facility] Address [address] [place] [address] Care Team Providers Care Lump Maker Name Role Phone Stan Culp MD Primary Care Provider +1 -[phone] Encounter Details Date Type Department Care Team Description 01/30/2023 Collaborative Care Management Adult Medicine - [address] [address] Stan Culp MD [address] [place] [address] Social History Tobacco Use Types Packs/Day Years [...] on filedocumented in this encounter Care Teams Lump Maker Relationship Specialty Start Date End Date Stan Culp MD [address] [place] [id number] PCP - General Internal Medicine 09/10/16 documented as of this encounter
--- OUTSIDE RECORDS SUMMARY | 2025-03-15 13:11 | XMS_ITS | Encounter Summary ---
Author Organization [facility] Address [address] [place] [address] Care Team Providers Care Utilization Management Nurse Name Role Phone Stan Culp MD Primary Care Provider +1 -[phone] Reason for Visit * Reason Onset Date Comments Medication 12/28/2023 Encounter Details Date Type Department Care Team Description 12/28/2023 Refill Gastroenterology [facility] [address] [facility] [address] [place] [address] Jt Aranda DO [address] [facility] [address] [place] [address] Medication Social History Tobacco Use Types Packs/Day Years [...] on filedocumented in this encounter Care Teams Utilization Management Nurse Relationship Specialty Start Date End Date Stan Culp MD [address] [place] [address] PCP - General Internal Medicine 09/10/16 documented as of this encounter
--- OUTSIDE RECORDS SUMMARY | 2025-03-15 13:11 | XMS_ITS | Encounter Summary ---
Author Organization [facility] Address [address] [place] [address] Care Team Providers Care Leach Tank Tender Name Role Phone Stan Culp MD Primary Care Provider +1 -[phone] Reason for Visit * Reason Comments E-prescribe Rx Request Encounter Details Date Type Department Care Team Description 08/12/2022 Refill Adult Medicine [address] [address] Stan Culp MD [address] [place] [address] E-prescribe Rx Request Social History Tobacco Use Types Packs/Day Years [...] encounter Miscellaneous Notes * Telephone Encounter - Tamym Doherty - 08/12/2022 4:45 PM EST LAST OV 05.22.2022 Lab Results Component Value Date HGBA1C 8.2 05/22/2022 MALBUR 17.1 08/27/2021 MALBCR 15.4 08/27/2021 CHOL 187 05/22/2022 LDL 111 05/22/2022 HDL 36 05/22/2022 TRIG 202 05/22/2022 GLU 134 05/22/2022 CREAT 1.04 05/22/2022 * Telephone Encounter - Shea Otto Dubon - 08/12/2022 2:54 PM EST Patient would like script to be: E-PRESCRIBED/FAXED TO PHARMACY WHEN WAS THE PATIENT'S LAST APPOINTMENT IN ADULT MEDICINE? 05/22/22 WHEN WAS THE LAST TIME THE PATIENT SAW THEIR PCP? Same as above Does patient have an upcoming appointment? Yes 08/22/22 (THE MEDICATION REQUESTED IS ON THE MED LIST ABOVE) All of the medications requested were on the CURRENT MEDS list Did you check the Pharmacy information above?: YES Patient wants: 90 -day supply Is this a mail order prescription request ? NO If the refill is from a FAXED refill request what is the RX # listed on the fax? N/A Patients current insurance carrier is: Payor: -[place]/PPO POS / Plan: FEP BASIC $30/$40 [place] / Product Type: PPO [id number] documented in this encounter Plan of Treatment Not on file documented as of this encounter Visit Diagnoses Not on filedocumented in this encounter Care Teams Leach Tank Tender Relationship Specialty Start Date End Date Stan Culp MD [address] [place] [address] PCP - General Internal Medicine 09/10/16 documented as of this encounter
--- OUTSIDE RECORDS SUMMARY | 2025-03-15 13:11 | XMS_ITS | Encounter Summary ---
Author Organization [facility] Address [address] [place] [address] Care Team Providers Care Sand Shoveler Name Role Phone Stan Culp MD Primary Care Provider +1 -[phone] Encounter Details Date Type Department Care Team Description 09/29/2023 SCAN [facility] 175 [facility] [address] [place] [phone] Salas Hartley MD 175 [facility] [address] [place] [address] Social History Tobacco Use Types Packs/Day Years [...] on filedocumented in this encounter Care Teams Sand Shoveler Relationship Specialty Start Date End Date Stan Culp MD [address] [place], [place] [phone] PCP - General Internal Medicine 09/10/16 documented as of this encounter
--- OUTSIDE RECORDS SUMMARY | 2025-03-15 13:11 | XMS_ITS | Encounter Summary ---
Author Organization [facility] Address [address] [place] [address] Care Team Providers Care Milled Rice Broker Name Role Phone Stan Culp MD Primary Care Provider +1 -[phone] Encounter Details Date Type Department Care Team Description 12/29/2023 SCAN [facility] 175 [facility] [address] [place] [phone] Salas Hartley MD 175 [facility] [address] [place] [address] Social History Tobacco Use Types Packs/Day Years [...] on filedocumented in this encounter Care Teams Milled Rice Broker Relationship Specialty Start Date End Date Stan Culp MD [address] [place], [place] [phone] PCP - General Internal Medicine 09/10/16 documented as of this encounter
--- OUTSIDE RECORDS SUMMARY | 2025-03-15 13:11 | XMS_ITS | Encounter Summary ---
Author Organization [facility] Address [address] [place] [address] Care Team Providers Care Management Retail Intern Name Role Phone Stan Culp MD Primary Care Provider +1 -[phone] Encounter Details Date Type Department Care Team Description 07/29/2018 Telephone Pulmonology - [place] 175 [facility] [address] [place] [phone] Roxane To [facility] [address] [place] [address] Social History Tobacco Use Types Packs/Day Years Used Date Smoking Tobacco: Former Cigarettes 1 1 988 - 02/03/2013 Smokeless Tobacco: Never Alcohol Use Standard Drinks/Week Comments Yes 0 (1 standard drink = 0.6 oz pur e alcohol) Socially Sex Assigned at Date Recorded Male 11/05/2021 11:59 AM EDT Job Start Date Occupation Industry Not on file Not on file Not on file documented as of this encounter Miscellaneous Notes * Telephone Encounter - Julia Barillas - 07/29/2018 4:21 PM EST Once the patient picks up his CPAP machine, then [facility] link him in [place]. At this point they do not have serial number. documented in this encounter Plan of Treatment Not on file documented as of this encounter Visit Diagnoses Not on filedocumented in this encounter Care Teams Management Retail Intern Relationship Specialty Start Date End Date Stan Culp MD [address] [place] [address] PCP - General Internal Medicine 09/10/16 documented as of this encounter
--- OUTSIDE RECORDS SUMMARY | 2025-03-15 13:11 | XMS_ITS | Encounter Summary ---
Author Organization [facility] Address [address] [place] [address] Care Team Providers Care Child Support Case Officer Name Role Accounts Receivable CollectorFacundo Yarbrough MD Primary Care Provider Stan Wilson MD Primary Care Provider +1 -[phone] Reason for Visit * Reason Onset Date Comments APPOINTMENT 01/10/2016 Encounter Details Date Type Department Care Team Description 01/10/2016 Telephone Endocrinology - [address] [address] Tj Murry MD APPOINTMENT Social History Tobacco Use Types Packs/Day Years [...] encounter Miscellaneous Notes * Telephone Encounter - Alpa Hopson - 01/11/2016 10:46 AM EDT Appointment booked 01/24 at 2:45p, please notify patient * Telephone Encounter - Gely Geronimo - 01/11/2016 8:30 AM EDT resending * Telephone Encounter - Akila Cifuentes L.P.N. - 01/10/2016 11:11 AM EDT pls send to correct pool * Telephone Encounter - Gely Geronimo - 01/10/2016 9:40 AM EDT Patient is referred to: endocrinology: Tj Murry M.D. Reason for referral: diabetes type 2-- Physician evaluation Priority: 1-2 weeks No availability, please schedule documented in this encounter Plan of Treatment Not on file documented as of this encounter Visit Diagnoses Not on filedocumented in this encounter Care Teams Child Support Case Officer Relationship Specialty Start Date End Date Facundo Yarbrough MD PCP - General 11/05/10 09/09/16 Stan Culp MD [address] [place] [address] PCP - General Internal Medicine 09/10/16 documented as of this encounter
--- OUTSIDE RECORDS SUMMARY | 2025-03-15 13:11 | XMS_ITS | Clinical Summary ---
Author Organization [employer] [facility] Address [address] [place] [address] Care Team Providers Care Rig Builder Name Role Phone Stan Culp MD Primary Care Provider +1 -[phone] Allergies Active Allergy Reactions Criticality Noted Date Comments Seasonal 08/20/2023 Medications Medication Sig Dispensed Refills Start Date End Date Status Semaglutide 7 MG TABS Take 1 tablet by mouth daily. 0 Active Cholecalciferol 1.25 MG (20840 UT) capsule Take 50,000 Units by mouth [...] 100 11/12/2023 1:02 PM EDT Temperature 36 C (96.8 F) 11/12/2023 1:02 PM EDT Respiratory Rate - [...] (1 of 2) 2022 Influenza Vaccine (#1) 2025 DTap / Tdap / Td (2 - Td or Tdap) 09/10/2026 017 Pneumococcal Vaccine Aged Out No long er eligible based on patient's age to complete this topic RSV Ped < 20 months Aged Out No longe r eligible based on patient's age to complete this topic Care Teams Rig Builder Relationship Specialty Start Date End Date Stan Culp MD [address] [place] [address] PCP - General Internal Medicine 07/27/23
--- OUTSIDE RECORDS SUMMARY | 2025-03-15 13:11 | XMS_ITS | Encounter Summary ---
Author Organization [facility] Address [address] [place] [address] Care Team Providers Care Manager Intensive Care Unit Name Role Phone Stan Culp MD Primary Care Provider +1 -[phone] Encounter Details Date Type Department Care Team Description 05/09/2023 Release of Information Medical Records [address] [place] [address] Abstract, Provider Social History Tobacco Use Types Packs/Day Years Used Date Smoking Tobacco: Former Cigarettes 1 30 07 988 - 02/03/2013 Smokeless Tobacco: Never Alcohol [...] suspected to have Coronavirus/COVID-19? No / Unsure 05/11/2023 10:17 AM EST documented as of this encounter Plan of Treatment Not on file documented as of this encounter Visit Diagnoses Not on filedocumented in this encounter Care Teams Manager Intensive Care Unit Relationship Specialty Start Date End Date Stan Culp MD [address] [place] [address] PCP - General Internal Medicine 09/10/16 documented as of this encounter
--- OUTSIDE RECORDS SUMMARY | 2025-03-15 13:11 | XMS_ITS | Encounter Summary ---
Author Organization [facility] Address [address] [place] [address] Care Team Providers Care Shanker Out Name Role Phone Stan Culp MD Primary Care Provider +1 -[phone] Reason for Visit * Reason Onset Date Comments Surgery (Schedule) 11/04/2023 Encounter Details Date Type Department Care Team Description 11/04/2023 Telephone [facility] [address] [phone] Salas Hartley MD [address] [address] Surgery (Schedule) Social History Tobacco Use Types Packs/Day Years [...] encounter Miscellaneous Notes * Telephone Encounter - Arabella Ayala - 11/04/2023 4:06 PM EDT Spoke with patient to schedule surgery. 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 I called Heel Reducer Therese Rae at [phone] and left a voicemail as to where I need to send clincials and request for auth for surgery documented in this encounter Plan of Treatment Not on file documented as of this encounter Visit Diagnoses Not on filedocumented in this encounter Care Teams Shanker Out Relationship Specialty Start Date End Date Stan Culp MD [address] [place] [address] PCP - General Internal Medicine 09/10/16 documented as of this encounter
--- OUTSIDE RECORDS SUMMARY | 2025-03-15 13:11 | XMS_ITS | Encounter Summary ---
Author Organization [facility] Address [address] [place] [address] Care Team Providers Care Parts Cataloger Name Role Phone Stan Culp MD Primary Care Provider +1 -[phone] Reason for Referral * Non BAKARI (Routine) - Authorized/Booked Specialty Diagnoses / Procedures Referred By Jerel zaragoza Referred To Contact Podiatry Procedures REFERRAL TO PODIATRY (IN NETWORK) Stan Culp MD [address] [place] [address] Adair Pozo, DPTaty [address] [place] [address] Referral ID Status Reason Start Date Expiration Date V isits Requested Visits Authorized [id number] Authorized/B ooked 12/01/2018 12/01/2019 1 1 Reason for Visit * Reason Onset Date Comments Youth Services Librarian Feedback 12/01/2018 Adair Pozo Encounter Details Date Type Department Care Team Description 12/01/2018 Telephone Adult Medicine [address] [address] Stan Culp MD [address] [place] [address] Youth Services Librarian Feedback (Adair Pozo) Social History Tobacco Use Types Packs/Day Years [...] encounter Miscellaneous Notes * Telephone Encounter - Stan Culp MD - 12/01/2018 2:55 PM EDT Referral to podiatry signed * Telephone Encounter - Debo Cross - 12/01/2018 1:45 PM EDT Please review this patients new referral request. The referral has been pended. Please complete thefollowing: If approved> sign order If denied>please give instructions and route to your practice nursing pool. Practice nurse should inform referrals and the patient if denied. * Telephone Encounter - Tammy Olivas - 12/01/2018 1:12 PM EDT Request for a referral to a [facility] Specialist for a patient with a [facility] PCP. If patient does NOT have a [facility] PCP they must obtain a referral from their PCP before being seen-do not submit request to Referrals department-contact patient. Richard MAY and Iraj MAY should not see patients with community PCP's as they are not billed as specialists. Specialty patient is being referred to: podiatry Name of Specialist patient is seeing: Dr. Adair Pozo Reason/diagnosis for visit: Pain in left foot and toes, diabetic patient. Date of appoinment: na If retro, date referral needs to start: aaron Culp Payor: [place]/PPO POS / Plan: FEP BASIC $30/$40 [place] / Product Type: PPO [id number] documented in this encounter Plan of Treatment Not on file documented as of this encounter Visit Diagnoses Not on filedocumented in this encounter Care Teams Parts Cataloger Relationship Specialty Start Date End Date Stan Culp MD [address] [place] [address] PCP - General Internal Medicine 09/10/16 documented as of this encounter
--- OUTSIDE RECORDS SUMMARY | 2025-03-15 13:11 | XMS_ITS | Encounter Summary ---
Author Organization [facility] Address [address] [place] [address] Care Team Providers Care Software Tester Name Role Phone Stan Culp MD Primary Care Provider +1 -[phone] Reason for Visit * Reason Onset Date Comments TEST RESULTS 01/13/2024 Encounter Details Date Type Department Care Team Description 01/13/2024 Telephone Adult Medicine [address] [address] Stan Culp MD [address] [place] [address] TEST RESULTS Social History Tobacco Use Types Packs/Day Years [...] encounter Miscellaneous Notes * Telephone Encounter - Sheri Gray MA. - 01/14/2024 1:09 PM EDT Spoke to pt and informed. He had no questions at this time. * Telephone Encounter - Jennifer Rico - 01/13/2024 1:56 PM EDT Pt calling back requesting a call back when you can. Thank you * Telephone Encounter - Sheri Gray MA. - 01/13/2024 1:43 PM EDT Attempted to contact pt / no answer LM to cb. Re: test results. Please put thru [id number] * Telephone Encounter - Sheri Gray MA. - 01/13/2024 1:43 PM EDT ----- Message from Stan Culp MD sent at 01/13/2024 12:50 PM EDT ----- Patient did not read his Octonius message. Could you please give him the following message: Your ultrasound of your abdomen showed that you do have fatty liver. You will need to focus on weight loss to improve this. You are being monitored by the ribbon hand for this as well. Thank you. documented in this encounter Plan of Treatment Not on file documented as of this encounter Visit Diagnoses Not on filedocumented in this encounter Care Teams Software Tester Relationship Specialty Start Date End Date Stan Culp MD [address] [place] [address] PCP - General Internal Medicine 09/10/16 documented as of this encounter
--- OUTSIDE RECORDS SUMMARY | 2025-03-15 13:11 | XMS_ITS | Clinical Summary ---
Author Organization [facility] Address [address] [place] [address] Care Team Providers Care Ticket Agent Name Role Phone Unavailable Primary Care Provider [...] (Shingrix) (1 of 2) 2022 COVID-19 Vaccine (1 - 2023-2 5 season) 2025 Influenza (#1) 2025 HPV Vaccine (No Doses Required) Completed Hep A Aged Out No longer eligi ble based on patient's age to complete this topic Hib Aged Out No longer eligi ble based on patient's age to complete this topic Meningococcal ACWY Aged Out No longer eligible based on patient's age to complete this topic
--- OUTSIDE RECORDS SUMMARY | 2025-03-15 13:11 | XMS_ITS | Encounter Summary ---
Author Organization [facility] Address [address] [place] [address] Care Team Providers Care Truck Railroad And Bus Motor Mechanic Name Role Phone Stan Culp MD Primary Care Provider +1 -[phone] Reason for Visit * Reason Comments E-prescribe Rx Request Encounter Details Date Type Department Care Team Description 08/22/2019 Refill Adult Medicine [address] [address] Sosa East NP [address] [place] [address] E-prescribe Rx Request Social History Tobacco Use [...] encounter Miscellaneous Notes * Telephone Encounter - Gregoria Rodriguez M.A. - 08/22/2019 11:57 AM EST Last office visit 02/04/19 Lab Results Component Value Date HGBA1C 7.8 02/04/2019 MALBUR 8.9 10/04/2018 MALBCR < 6.9 10/04/2018 CHOL 161 10/04/2018 LDL 76 10/04/2018 HDL 30 10/04/2018 TRIG 278 10/04/2018 GLU 69 10/04/2018 CREAT 0.92 10/04/2018 * Telephone Encounter - Meenakshi Ca - 08/22/2019 11:51 AM EST Patient would like script to be: E-PRESCRIBED/FAXED TO PHARMACY WHEN WAS THE PATIENT'S LAST APPOINTMENT IN ADULT MEDICINE? 02/04/19 WHEN WAS THE LAST TIME THE PATIENT SAW THEIR PCP? Same as above Does patient have an upcoming appointment? No-unable to reach left [facility] to call for appointment due to refill request. (THE MEDICATION REQUESTED IS ON THE MED [...] N/A Patients current insurance carrier is: [place]or: -[place]/PP[place] POS / Plan: PPO $30 [place] [id number] / ProductType: PPO [id number] documented in this encounter Plan of Treatment Not on file documented as of this encounter Visit Diagnoses Not on filedocumented in this encounter Care Teams Truck Railroad And Bus Motor Mechanic Relationship Specialty Start Date End Date Stan Culp MD [address] [place] [address] PCP - General Internal Medicine 09/10/16 documented as of this encounter
--- OUTSIDE RECORDS SUMMARY | 2025-03-15 13:11 | XMS_ITS | Encounter Summary ---
Author Organization [facility] Address [address] [place] [address] Care Team Providers Care Implementation Technician Name Role Phone Stan Culp MD Primary Care Provider +1 -[phone] Encounter Details Date Type Department Care Team Description 10/16/2023 SCAN [facility] Medical [facility] 175 [facility] [address] [place] [phone] Salas Hartley MD 175 [facility] [address] [place] [address] Social History Tobacco Use Types Packs/Day Years [...] on filedocumented in this encounter Care Teams Implementation Technician Relationship Specialty Start Date End Date Stan Culp MD [address] [place], [place] [phone] PCP - General Internal Medicine 09/10/16 documented as of this encounter
--- OUTSIDE RECORDS SUMMARY | 2025-03-15 13:11 | XMS_ITS | Encounter Summary ---
Author Organization [facility] Address [address] [place] [address] Care Team Providers Care Snow Technician Name Role Form MakerFacundo Yarbrough MD Primary Care Provider [facility] Stan Mcmillan MD Primary Care Provider +1 -[phone] Encounter Details Date Type Department Care Team Description 12/03/2010 Hospital Medical Records [address] [place] [address] Doctor, Travis Manning Social History Tobacco Use Types Packs/Day Years [...] on filedocumented in this encounter Care Teams Snow Technician Relationship Specialty Start Date End Date Facundo Yarbrough MD PCP - General 11/05/10 09/09/16 Stan Culp MD [address] [place] [address] PCP - General Internal Medicine 09/10/16 documented as of this encounter
--- OUTSIDE RECORDS SUMMARY | 2025-03-15 13:11 | XMS_ITS | Encounter Summary ---
Author Organization [facility] Address [address] [place] [address] Care Team Providers Care Medical Staff Assistant Name Role Phone Stan Culp MD Primary Care Provider [phone] Reason for Visit * Reason Comments E-prescribe Rx Request Encounter Details Date Type Department Care Team Description 08/08/2022 Refill Adult Medicine - [address] [id number] Stan Culp MD [address] [place] [id number] E-prescribe Rx Request Social History Tobacco Use [...] Telephone Encounter - Janice Menendez M.A. - 08/08/2022 11:39 AM EST Date of last office visit was 05/22/22. Pended appt for 08/22/22 Lab Results Component Value Date HGBA1C 8.2 05/22/2022 MALBUR 17.1 08/27/2021 MALBCR 15.4 08/27/2021 CHOL 187 05/22/2022 LDL 111 05/22/2022 HDL 36 05/22/2022 TRIG 202 05/22/2022 GLU 134 05/22/2022 CREAT 1.04 05/22/2022 Lab Results Component Value Date NA 138 05/22/2022 K 4.1 05/22/2022 CO2 31 05/22/2022 CL 103 05/22/2022 BUN 12 05/22/2022 CREAT 1.04 05/22/2022 GLU 134 05/22/2022 CA 8.7 05/22/2022 GFR 88 05/22/2022 * Telephone Encounter - Laura Mas - 08/08/2022 10:15 AM EST Patient would like script to be: E-PRESCRIBED/FAXED TO PHARMACY WHEN WAS THE PATIENT'S LAST APPOINTMENT IN ADULT MEDICINE? 05/22/22 WHEN WAS THE LAST TIME THE PATIENT SAW THEIR PCP? 02/11/22 Does patient have an upcoming appointment? Yes 08/22/22 (THE MEDICATION REQUESTED IS ON THE MED LIST ABOVE) All of the medications requested were on the CURRENT MEDS list Did you check the Pharmacy information above?: YES Patient wants: 30 -day supply Is this a mail order prescription request ? NO If the refill is from a FAXED refill request what is the RX # listed on the fax? N/A Patients current insurance carrier is: Payor: [employer]/PPO POS / Plan: FEP BASIC $30/$40 [place] / Product Type: PPO [id number] documented in this encounter Plan of Treatment Not on file documented as of this encounter Visit Diagnoses Diagnosis Type 2 diabetes mellitus with microalbuminuria, without long-term current use of insulin (HCC) documented in this encounter Care Teams Medical Staff Assistant Relationship Specialty Start Date End Date Stan Culp MD [address] [place] [id number] PCP - General Internal Medicine 09/10/16 documented as of this encounter
--- OUTSIDE RECORDS SUMMARY | 2025-03-15 13:11 | XMS_ITS | Encounter Summary ---
Author Organization [facility] Address [address] [place] [address] Care Team Providers Care Manager Long Term Care Name Role Phone Stan Culp MD Primary Care Provider [phone] Reason for Visit * Reason Onset Date Comments Call From Pharmacy 05/19/2023 Encounter Details Date Type Department Care Team Description 05/19/2023 Telephone Orthopedics-[address] [address] Stevenson Stein PA-C Call From Pharmacy Social History Tobacco Use Types Packs/Day Years [...] Recorded In the last 10 days, have georgette u been in contact with someone who was confirmed or suspected to have Coronavirus/COVID-19? Unable to assess 05/14/2023 1:30 PM EST documented as of this encounter Miscellaneous Notes * Telephone Encounter - Gely Geronimo - 05/19/2023 1:59 PM EST Patients prescription needs to go through [facility]cription. documented in this encounter Plan of Treatment Not on file documented as of this encounter Visit Diagnoses Not on filedocumented in this encounter Care Teams Manager Long Term Care Relationship Specialty Start Date End Date Stan Culp MD [address] [place] [address] PCP - General Internal Medicine 09/10/16 documented as of this encounter
== END 2025-03-15 11:13 | disposition home or self-care (01) ==
LOC: HO.HPS 10:38
PROVIDERS: PCP Internal Medicine; Visit Provider Internal Medicine
DX: E66.01 Morbid (severe) obesity due to excess calories (principal); G47.33 Obstructive sleep apnea (adult) (pediatric)
CPT/HCPCS: 99213